=== PATIENT | female | born 1945 | race Caucasian/White ===

== ENCOUNTER 2016-09-16 22:26 | Emergency (ER) | payer OTHER ==
[~2016-09-16] VITALS: Ht 160 cm; Wt 113.6 kg
[2016-09-16 22:32] VITALS: TEMP 36.6; Ht 160 cm; Wt 113.6 kg
[2016-09-16] MEDS ORDERED: OXYCODONE IR HOME PACK PO ONE (23:00)
[2016-09-17] MEDS ORDERED: OXYC1TAB3 PO (00:16)
--- NOTE | 2016-09-17 00:17 | EMERGENCY ROOM VISIT NOTE ---
ED Visit Note First contact with patient: 22:37 Patient seen by me at 12:17 AM. Patient complaining of left knee left great toe and right knee and right lateral foot pain after fall. I reviewed the x- rays with my physician assistant coach. I agree with the workup patient will be treated for orthopedic injuries with follow-up. Discussed evaluation with the patient as well as bedside Current/Historical Medications Scheduled PRN Oxycodone Immediate Rel Tab (Roxicodone Ir), 1-2 TAB PO Q4H PRN for Severe Pain Allergies Coded Allergies: Penicillins (Verified Allergy, Intermediate, childhood allergy, 09/16/16) Vital Signs Date Time Temp Pulse Resp B/P (MAP) Pulse Ox O2 Delivery O2 Flow Rate FiO2 09/16/16 22:32 36.6 80 20 124/78 97 Room Air Departure Information Impression Primary Impression: Injury of left great toe Additional Impressions: Foot fracture, right Contusion of knee, left Contusion of knee, right Dispostion Home / Self-Care Condition GOOD Prescriptions Oxycodone Immediate Rel Tab (ROXICODONE IR) 5 Mg Tab 1-2 TAB PO Q4H Y for Severe Pain, #15 TAB initial course Prov: Margo Mauricio .GEORGE 09/17/16 Forms HOME CARE DOCUMENTATION FORM, IMPORTANT VISIT INFORMATION Patient Instructions My [facility], ED Fx Foot Additional Instructions Oxycodone (OxyIR) 5mg: Take 1-2 pills every four hours for breakthrough pain. Avoid alcohol, operating machinery or dangerous equipment, working on ladders or roofs, DRIVING, or situations where being under the influence may be dangerous. It is recommended to use an [id number] stool softener such as Colace, 100mg twice daily while taking this medication to avoid constipation. Ibuprofen(Motrin, Advil) may be used for fever or pain. Use 600mg every six hours as needed. Take with food. Avoid using more than 2400mg in a 24 hour period. Do not use 2400mg per day for more than three consecutive days without physician direction. Prolonged inappropriate use can lead to stomach upset or ulcers. This medication can be taken if you need to drive, work, or perform activities which may be dangerous when taking narcotic pain medication. (AND/OR) Acetaminophen(Tylenol) may be used for fever or pain. Use 1000mg every six hours as needed. Avoid using more than 3000mg in a 24 hour period. This medication can be taken if you need to drive, work, or perform activities which may be dangerous when taking narcotic pain medication. Ice compresses for 20 minutes at a time four times daily for 2-3 days. Use your cane as instructed. Rest and elevate your injury. Do not get the splint wet. If your splint feels excessively tight, you have worsening pain, develop numbness or tingling, or your digits appear blue, loosen the xander wrap. Then reapply the xander wrap gently without removing the splint. If your symptoms are not quickly relieved return to the ER for re- evaluation. Wear Xander wrap for compression for the next week. Do not have it so tight that you cannot feel your feet. Continue current medications. Return to the ER immediately for any numbness, tingling, severe pain, extreme swelling in the extremity or as needed. Call your Orthopedics tomorrow to arrange follow up for your injury. Problem Qualifiers
[2016-09-17 00:54] VITALS: BP 156/79; PULSE 73; O2SAT 97
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
--- NOTE | 2016-09-17 06:50 | DIAGNOSTIC IMAGING REPORT ---
LEFT KNEE 3 VIEWS CLINICAL HISTORY: Left knee pain following fall. COMPARISON: None FINDINGS: Alignment of the total left knee arthroplasty is anatomic. There is no periprosthetic fracture. There is a suspected small left knee joint effusion. IMPRESSION: 1. Status post total left knee arthroplasty. Hardware intact. No periprosthetic fracture. 2. Suspected small left knee joint effusion. Electronically signed by: Alistair Salazar M.D. 09/17/2016 6:49 AM Dictated Date/Time: 09/17/2016 6:48 AM
--- NOTE | 2016-09-17 06:52 | DIAGNOSTIC IMAGING REPORT ---
LEFT TOE(S) MIN 2 VIEWS CLINICAL HISTORY: Left great toe pain following fall. COMPARISON: None FINDINGS: There is hallux valgus deformity with severe osteoarthritis of the left first metatarsophalangeal joint. No acute fracture of the left first toe is identified. IMPRESSION: 1. No acute fracture of the left first toe. 2. 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 Electronically signed by: Alistair Salazar M.D. 09/17/2016 6:51 AM Dictated Date/Time: 09/17/2016 6:49 AM
--- NOTE | 2016-09-17 06:53 | DIAGNOSTIC IMAGING REPORT ---
RIGHT FOOT MIN 3 VIEWS ROUTINE CLINICAL HISTORY: Fall. Right foot pain. COMPARISON: None FINDINGS: There is an acute transverse nondisplaced fracture within the proximal shaft of the right fifth metatarsal. No additional fractures are identified. Alignment of the tarsometatarsal joints is anatomic. There is moderate plantar calcaneal spurring. There is severe arthritis of the right first metatarsophalangeal joint. IMPRESSION: 1. Acute nondisplaced transverse fracture within the proximal shaft of the right fifth metatarsal. 2. 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 Electronically signed by: Alistair Salazar M.D. 09/17/2016 6:52 AM Dictated Date/Time: 09/17/2016 6:51 AM
--- NOTE | 2016-09-17 06:54 | DIAGNOSTIC IMAGING REPORT ---
RIGHT KNEE 3 VIEWS CLINICAL HISTORY: Right knee pain following fall. COMPARISON: None FINDINGS: Alignment of the total right knee arthroplasty is anatomic. There is no periprosthetic fracture. There is no joint effusion. IMPRESSION: Status post total right knee arthroplasty. No periprosthetic fracture. Electronically signed by: Alistair Salazar M.D. 09/17/2016 6:53 AM Dictated Date/Time: 09/17/2016 6:52 AM
== END 2016-09-17 00:46 | disposition home or self-care (01) ==
LOC: C.EDB 22:28 → C.EDC 09-17 00:46
DX: S99.922A Unspecified injury of left foot, initial encounter (principal); S92.354A Nondisplaced fracture of fifth metatarsal bone, right foot, initial encounter for closed fracture; S80.01XA Contusion of right knee, initial encounter; S80.02XA Contusion of left knee, initial encounter; W01.0XXA Fall on same level from slipping, tripping and stumbling without subsequent striking against object, initial encounter; Y92.480 Sidewalk as the place of occurrence of the external cause; Z96.653 Presence of artificial knee joint, bilateral; M06.9 Rheumatoid arthritis, unspecified; I10 Essential (primary) hypertension; E78.5 Hyperlipidemia, unspecified; J45.909 Unspecified asthma, uncomplicated; F41.9 Anxiety disorder, unspecified; F32.9 Major depressive disorder, single episode, unspecified